=== PATIENT | male | born 1945 | race Caucasian/White ===

== ENCOUNTER 2017-02-24 18:35 | Emergency (ER) | payer MEDICARE ==
[~2017-02-24] VITALS: Ht 188 cm; Wt 129.6 kg
[~2017-02-24 18:35] MED LIST: CHOL10002 PO; MULT-1018 PO; OMEG100021 PO; OMPR20CCR PO; ONDA4TAB6 PO
[2017-02-24 18:40] VITALS: BP 189/102; PULSE 84; RESP 18; O2SAT 97
--- NOTE | 2017-02-24 20:25 | ED.REPORT ---
HPI-Extremity Problem Upper Date of Service February 24, 2017 ED Provider: Butch Hugo MD Rich is an otherwise healthy 8-year-old male presented with a chief complaint of a swollen right hand. Patient reports he was swinging his jacket in his left hand to try to remove grass when a small school that was in the pocket that jacket struck his right hand. Reports significant swelling on the back of his right hand. Denies numbness/tingling, weakness. Denies bleeding/ clotting disorders, use of blood thinners. Nursing Notes Stated Complaint: SWOLLEN RIGHT HAND Chief Complaint: Extremity Trauma Nursing Notes Reviewed: Yes Allergies: Coded Allergies: warfarin (Verified Allergy, Unknown, 07/30/15) Scheduled Cholecalciferol-Expunged Drug, Do Not Renew! (Vitamin D3-Expunged Drug, Do Not Renew!) 1,000 Unit Tablet 1,000 UNITS PO DAILY MULTIVITAMIN-Expunged Drug, Do Not Renew! (MULTI VITAMIN -Expunged Drug, Do Not Renew!) 1 Each Tablet 1 EACH PO DAILY [place]rose-3/Dha/Epa/Fish Oil-Expunged Drug, Do No (Fish Oil 1,000 Mg-Expunged Drug, Do Not Renew) 1,000 Mg Capsule 1,000 MG PO DAILY Omeprazole-Expunged Drug, Do Not Renew! (Omeprazole-Expunged Drug, Do Not Renew! ) 20 Mg Capsule.dr 20 MG PO DAILY Scheduled PRN Ondansetron (Zofran) 4 Mg Tablet 4 MG PO Q4H PRN PRN For Nausea General Time Seen by MD: 20:15 Chief Complaint Hand injury right Past Medical History Past Medical History GERD with Barretts esophagus Basal cell ca on back Past Surgical History 1. Tonsillectomy as a child. 2. Right knee arthroscopy in 1984. 3. Prior hammertoe operation. 4. Left hip arthroplasty in 2009. Review of Systems Review of Systems Note: Negative unless stated otherwise in history of present illness Physical Exam General: Well appearing, well developed, well nourished, no acute distress. Left hand: 2 cm focal area of firm swelling on the dorsal aspect of the fourth and fifth metacarpal. Negative redness, heat, bruising. Nontender. Negative anatomical snuffbox tenderness. Strength and range of motion in wrist, MCP PIP and DIP joints intact. Sensation intact and brisk capillary refill in all digits. Head: Atraumatic, normocephalic. Eyes: No scleral icterus or injection. No discharge. Vision grossly intact. ENT: Voice clear, hearing grossly intact. Respiratory: No respiratory distress, no increased work of breathing. Speaks in complete sentences. Skin: Warm and dry. Neurological: Grossly nonfocal. Psychological: alert and oriented. Speech appropriate, linear and logical. Behavior appropriate. Initial Vital Signs Vital Signs (First) Date Time Temp Pulse Resp B/P Pulse Ox O2 Delivery O2 Flow Rate FiO2 02/24/17 18:40 84 18 189/102 97 Room Air Initial VS: Vital signs abnormal (elevated blood pressure) Re-Eval/Medical Decision Med Decision/Clinical Course Otherwise healthy 71-year-old male presents with chief complaint swelling of the back is left hand. Patient reports he was swinging his jacket to remove grass and leaves when a school in the pocket struck him on the back of his left hand. Noted swelling in that area. Physical examination is benign with circulation, sensation and strength intact. 2 cm area of firm swelling on the dorsal aspect of the third and fourth metacarpal. Tenderness. Patient declines x-ray. I believe this is most likely hematoma and I feel fracture is unlikely. Patient denies taking blood thinners and I feel PT/INR is not necessary this time. Elevated blood pressure is noted but not thought to be clinically relevant. Advised rest, ice, elevation and compression as well as [id number] analgesia. Sony wrap is provided with circulation and sensation intact after application. Advise primary care follow-up, provided emergency return precautions. Patient verbalizes understanding of and consent to the plan. Discharge & Departure Impression: Primary Impression: Hematoma Disposition: Home Discharge Condition All VS Reviewed: Yes Condition: Stable Patient Instructions: Hematoma (ED) Additional Instructions: Evaluation for right hand swelling in the emergency department includes history and physical examination both of which are reassuring this is unlikely to be caused by a fracture is most likely a hematoma caused by the blow to your hand. I cannot definitively rule out a fracture, but it seems unlikely and you have declined an x-ray. I feel this is reasonable. I believe you are stable and safe to be discharged. Be aware that this is likely to be more painful in the morning, but should loosen up over the course of the day. Ice the affected area 2-3 times over the next couple of days for 15-20 minutes at a time. Elevate it above the level of your heart as much as possible and keep the Sony wrap on as much as possible. This will reduce pain and swelling. The pain is best treated with 400 mg of ibuprofen (Advil, Motrin) every 6 hours , or 1000 mg of acetaminophen (Tylenol) every 6 hours. These drugs can be taken at the same time for more severe pain. Follow-up with your primary care provider if this is not significantly improved in 3-4 days. Return to the emergency department for any new or worsening symptoms including increasing redness, swelling, pain. Referrals: Donis Rasheed MD (PCP) EDSupervising Provider for APC: Buthc Hugo MD copies to: Donis Rasheed MD, Seth PA-C February 24, 2017 20:25
== END 2017-02-24 20:27 | disposition home or self-care (01) ==
LOC: SED 18:35
DX: S60.221A Contusion of right hand, initial encounter (principal); W22.8XXA Striking against or struck by other objects, initial encounter; Y93.89 Activity, other specified; Y92.9 Unspecified place or not applicable; Y99.8 Other external cause status; K21.9 Gastro-esophageal reflux disease without esophagitis; Z88.8 Allergy status to other drugs, medicaments and biological substances